=== PATIENT | male | born 1955 | race Caucasian/White ===

== ENCOUNTER 2018-06-26 17:23 | Emergency (ER) | payer SELFPAY ==
--- NOTE | 2018-06-26 18:51 | EDM.PDOC ---
<Nydia Esquivel M - Last Filed: 06/26/18 18:44> ED HPI GENERAL MEDICAL PROBLEM - General Chief Complaint: ENT Problem Stated Complaint: DENTAL COMPLAINT WITH FACIAL SWELLING Time Seen by Provider: 06/26/18 18:20 Source of Information: Reports: Patient, RN Notes Reviewed History Limitations: Reports: No Limitations - History of Present Illness INITIAL COMMENTS - FREE TEXT/NARRATIVE: Elijah is a 62 year old male to presents to the ED today with worsening right sided dental pain and facial swelling. Patient states that he has not seen a dentist in quite some time, since he moved from [facility], and he has no dental coverage. He feels that his back right molar started bothering him two or three days ago, but today the pain became intolerable, and he noticed some swelling under his right eye in the cheek. He feels like his right eye is throbbing and it is constantly tearing. He states that he has a "high pain tolerance" and he does not feel that tylenol and ibuprofen will help him so he has not taken any. He is rating his pain as 8/10 today. He has not noticed any drainage or exudate from his mouth or gums. He denies any fever, chills or nightsweats. Patient is allergic to PCN and codine, and states that he gets the sweats and shakes when this occurs, but no anaphylaxis. He does have a 30 pack year history of cigarette smoking. He drinks 7-8 beers per week. Right Lower Tooth/Teeth Pain Score (Numeric/FACES): 8 - Related Data Allergies Allergy/AdvReac Type Severity Reaction Status Date / Time codeine Allergy Cannot Verified 06/26/18 17:34 Remember Penicillins Allergy Cannot Verified 06/26/18 17:34 Remember Past Medical History HEENT History: Reports: Impaired Vision Respiratory History: Reports: Pneumonia, Recurrent, Other (See Below) Other Respiratory History: collapsed lung Gastrointestinal History: Reports: Diverticulosis Neurological History: Reports: Concussion - Infectious Disease History Infectious Disease History: Reports: Chicken Pox, Measles - Past Surgical History HEENT Surgical History: Reports: Tonsillectomy GI Surgical History: Reports: Appendectomy, Colostomy Social & Family History - Family History Family Medical History: Noncontributory - Tobacco Use Smoking Status *Q: Current Every Day Smoker Years of Tobacco use: 30 Packs/Tins Daily: 0.5 - Caffeine Use Caffeine Use: Reports: Coffee, Tea - Recreational Drug Use Recreational Drug Use: No ED ROS ENT - Review of Systems Review Of Systems: ROS reveals no pertinent complaints other than HPI. ED EXAM, ENT - Physical Exam Exam: See Below Exam Limited By: No Limitations General Appearance: Alert, WD/WN, No Apparent Distress Eye Exam: Bilateral Eye: EOMI, Normal Inspection, PERRL Mouth/Throat: Dental Abcess, Dental Pain, Dental Tenderness (over tooth 3 ). No : Tonsillar Swelling, Trismus, Uvular Deviation Head: Atraumatic, Facial Swelling (right ), Sinus Tenderness (right maxillary sinus) Neck: Normal Inspection, Supple, Non-Tender Respiratory/Chest: No Respiratory Distress Neurological: Alert, Oriented, Normal Cognition Psychiatric: Normal Affect, Normal Mood Skin: Warm, Dry, Intact Course - Vital Signs Last Recorded V/S: Last Vital Signs Temp 98.8 F 06/26/18 17:34 Pulse 102 H 06/26/18 17:34 Resp 16 06/26/18 17:34 BP 139/90 06/26/18 17:34 Pulse Ox 95 06/26/18 17:34 Departure - Departure Disposition: Home, Self-Care 01 Clinical Impression: Dental abscess, Pain, dental - Discharge Information Instructions: Dental Abscess, [id number] Referrals: PCP,None [Primary Care Provider] - Forms: ED Department Discharge Additional Instructions: Rx for clindamycin 300mg q6hrs x 10 days given from [facility] Rx for norco 5-325mg tabs 1-2 tabs PO every 6-8 hours prn pain given from [facility] Take the clindamycin as prescribed. One cap Every 6 hours for 10 days. This with food. Recommend yogurt or probiotic to help reduce side effects of upset stomach, nausea and diarrhea. [id number] ibuprofen as a for pain. Do not take more than 3200 mg of ibuprofen from all sources in 1 day. may take [place] one or 2 tabs every 6-8 hours as needed for pain not relieved by ibuprofen. [place] is habit-forming, take as few of these as needed to control your pain. Do not drive or operate machinery within 10 hours of taking [place]. Recommend [id number] clove oil or Orajel for additional pain relief. Follow up with a dentist as soon as you are able to. A list of local dentists has been provided for you. If cost is a concern recommend [facility] in [place], they are available on a sliding scale fee schedule. Please return to the ER if your symptoms change or worsen. <JoselineJoanie Angeles - Last Filed: 06/26/18 21:40> ED HPI GENERAL MEDICAL PROBLEM - History of Present Illness INITIAL COMMENTS - FREE TEXT/NARRATIVE: I have seen the patient and agree with the HPI as documented by MAGDALENA Michael ED ROS ENT - Review of Systems Review Of Systems: See Below Constitutional: Denies: Fever, Chills GI/Abdominal: Denies: Nausea, Vomiting ED EXAM, ENT - Physical Exam Exam: See Below Course - Re-Assessments/Exams Free Text/Narrative Re-Assessment/Exam: 06/26/18 18:49 I have seen the patient and agree with the HPI, ROS and PE as documented by MAGDALENA Michael Will start on clindamycin and prescribe pain medication. Recommendations for local dentist provided. Discharge instructions as documented. Departure - Departure Time of Disposition: 18:55 Condition: Good - Discharge Information *PRESCRIPTION DRUG MONITORING PROGRAM REVIEWED*: No *COPY OF PRESCRIPTION DRUG MONITORING REPORT IN PATIENT ANISH: No
== END 2018-06-26 19:25 | disposition home or self-care (01) ==
LOC: JD.ED 17:23
DX: K04.7 Periapical abscess without sinus (principal); F17.210 Nicotine dependence, cigarettes, uncomplicated; Z88.0 Allergy status to penicillin; Z88.5 Allergy status to narcotic agent
CPT/HCPCS: 99282